=== PATIENT | male | born 1980 | race Caucasian/White ===

== ENCOUNTER 2017-03-22 12:17 | Emergency (ER) | payer OTHER ==
--- NOTE | ~2017-03-22 | CT2 ---
[facility] A Service of [facility] & [facility] RADIOLOGY TEXT RESULTS PATIENT: JANIS DIAZ LOCATION: [facility] : 76 UNIT #: [id number] AGE: [address]: Seth Garner MD SEX: M ORDER DR: [id number] [id number] [facility]. [place], [place] [address] [id number] MR#: [id number] Acc #: [id number] NAME: JANIS DIAZ : 1980 SEX: M STUDY DATE/TIME: 03/22/2017 14:33 UNIT: [facility] ROOM: STUDY DESCRIPTION: CT Abd and Pelv W Cont Attending Physician: Seth Garner M.D. Ordering Physician: Seth Garner M.D. Primary Care Physician: Primary Care Physician No MEDICAL IMAGING REPORT This report is preliminary unless electronic signature is present EXAM Abdomen and pelvis CT with contrast, 03/22/2017 INDICATIONS Groin pain on the right, scheduled for hernia repair in 4 days. Symptom onset in 2013 but pain has been worse for the past year. Worsening symptoms since Wednesday. TECHNIQUE Contrast-enhanced abdomen and pelvis CT was performed. No comparisons. This CT exam was performed with one or more of the following radiation dose reduction techniques: Automatic exposure control, adjustment of mA and/or kV according to patient size, and iterative reconstruction. FINDINGS CT ABDOMEN: Included lung bases are clear. There is old, healed granulomatous disease. Aorta demonstrates no aneurysm or dissection. Spleen, adrenal glands and pancreas are unremarkable. Gallbladder is surgically absent. There is prominence of the extrahepatic common bile duct, likely physiologic given history of cholecystectomy. Maximum diameter is approximately 10 mm. Minimal central intrahepatic ductal prominence, likely also physiologic. Liver otherwise appears unremarkable. Kidneys are normal. CT PELVIS: The bladder is distended but otherwise normal. Prostate within normal limits. No drainable fluid collection in the pelvis. No free fluid. No bowel obstruction or focal inflammatory change of the bowel. Appendix surgically absent by history. There is evidence of inguinal hernia repair on the right. No distinct evidence of hernia recurrence. Reactive-appearing inguinal lymph nodes are present. There is no suspicious bone lesion. IMPRESSION ST[facility] A Service of [facility] & [facility] RADIOLOGY TEXT RESULTS PATIENT: JANIS DIAZ LOCATION: [facility] : 76 UNIT #: [id number] AGE: [address]: Seth Garner MD SEX: M ORDER DR: 1. No clearly acute process identified. No bowel obstruction, drainable fluid collection or focal area of inflammatory change. The appendix is surgically absent. 2. No evidence of recurrent inguinal hernia. There is evidence of prior inguinal hernia repair on the right. 3. Status post cholecystectomy. Dictated by... Markell Bee M.D. THIS IS AN ELECTRONICALLY VERIFIED REPORT Markell Bee M.D. at 03/23/2017 12:57 PM DERREK/mackenzie TD: 03/22/2017 22:40 JOB #: [id number] MEDICAL IMAGING REPORT Page 1 of 1 COPY
[~2017-03-22 12:17] MED LIST: HYDROCODON-ACE1 EAC5 PO; TYLENOL325 M1 PO
[2017-03-22 13:31] LABS: BASOPHIL# 0.1 X10e3 (0-0.3); BASOPHIL% 0.6 % (0-2.5); EOSINOPHIL# 0.1 X10e3 (0-0.7); EOSINOPHIL% 1.4 % (0.0-7.0); HEMATOCRIT 45.4 % (38.0-50.0); HEMOGLOBIN 15.1 gm/dL (13.0-16.0); LYMPHOCYTE# 1.6 X10e3 (1.0-3.5); LYMPHOCYTE% 15.7 % (17.0-45.0); MEAN CELL VOLUME 83.9 FL (83-96); MEAN CORPUSCULAR HEMOGLOBIN 27.9 PG (28-34); MEAN CORPUSCULAR HGB CONC 33.3 g/dL (30-36); MEAN PLATELET VOLUME 8.8 FL (6.5-11.5); MONOCYTE# 0.7 X10e3 (0-1.0); MONOCYTE% 6.9 % (3.0-12.0); NEUTROPHIL# 7.8 X10e3 (1.5-7.1); NEUTROPHIL% 75.4 % (40-75); PLATELET COUNT 251 X10e3 (140-420); RED BLOOD COUNT 5.41 X10e (3.90-5.60); RED CELL DISTRIBUTION WIDTH 15.1 % (11.0-15.5); WHITE BLOOD COUNT 10.3 X10e3 (4.0-10.5)
[2017-03-22 13:34] LABS: DIFF IND NO
[2017-03-22 13:40] LABS: POC - CKMB <1.0 ng/mL (0.0-7.9); POC - TROPONIN <0.05 ng/mL (<=0.05)
[2017-03-22 13:53] LABS: ALBUMIN SERUM 4.2 g/dL (3.5-5.0); BILIRUBIN, DIRECT 0.1 mg/dL (0.0-0.2); BILIRUBIN,INDIRECT 0.4 mg/dL (0.0-0.9); BILIRUBIN,TOTAL 0.5 mg/dL (0.2-2.0); BUN/CREATININE RATIO 13.33; CALCIUM SERUM 9.1 mg/dL (8.4-10.2); CREATININE SERUM 0.6 mg/dL (0.6-1.4); GLOM FILT RATE Estimated 127.6 mL/min (>60); POTASSIUM 3.8 mmol/L (3.5-5.1); PROTEIN TOTAL SERUM 7.3 g/dL (6.0-8.3)
[2017-03-22 14:13] LABS: URINE SOURCE CLEAN CATCH
[2017-03-22 14:18] LABS: URINE APPEARANCE CLEAR; URINE BILIRUBIN NEG (NEG); URINE BLOOD NEG (NEG); URINE COLOR YELLOW; URINE GLUCOSE NEG (NEG); URINE KETONE NEG (NEG); URINE LEUKOCYTE ESTERASE NEG (NEG); URINE NITRATE NEG (NEG); URINE PH 6.5 (5-8); URINE PROTEIN NEG (NEG); URINE SPECIFIC GRAVITY 1.005 (1.003-1.035); URINE UROBILINOGEN 0.2 MG/DL (NEG)
[2017-03-22 14:22] LABS: CULTURE INDICATED? NO
[2017-03-26] MEDS ORDERED: LORTAB 10-3251 EACH PO (08:59)
[2017-03-26] MEDS ORDERED: TYL325 PO (08:59)
== END 2017-03-22 16:41 | disposition home or self-care (01) ==
LOC: CED 12:17
PROVIDERS: Emergency Medicine
DX: R10.31 Right lower quadrant pain (principal); Z90.49 Acquired absence of other specified parts of digestive tract; F17.200 Nicotine dependence, unspecified, uncomplicated; Z98.890 Other specified postprocedural states; Z88.8 Allergy status to other drugs, medicaments and biological substances; Z88.1 Allergy status to other antibiotic agents
CPT/HCPCS: 36415; 74177; 80048; 80076; 81003; 82150; 82553; 83690; 84484; 85025; 96374; 96375; 96376; 99284; J2270; J2405; Q9967

== ENCOUNTER → 2017-03-26 | Day surgery (SDC) | payer OTHER ==
[~2017-03-26] MED LIST changes: +LORTAB 10-3251 EACH PO; +TYL325 PO
--- NOTE | ~2017-03-26 | OR ---
Unit #: [id number] #: [id number] Patient: JANIS DIAZ [id number] [address] [place], [place] [address] [id number] O MR#: [id number] NAME: JANIS DIAZ ROOM: Date of Procedure: 03/26/2017 Admission Date: 03/26/2017 Surgeon: Hiro Arciniega Jr., M.D. : 1980 Attending Physician: Hiro Arciniega Jr., M.D. Primary Care Physician: Primary Care Physician No OPERATIVE REPORT INDICATION FOR PROCEDURE The patient is a 36-year-old white male, who was recently seen in the office, complaining of severe right inguinal pain after having right inguinal hernia and subsequently, a right orchiectomy. He is painful over the scar as well as down towards the scrotum and it was felt he may have retained spermatic cord and painful scar tissue, possibly recurrent hernia. It was also thought that he possibly is having some pain with respect to the scar tissue and his mesh. He is brought in this time for exploration of the right groin with possible removal of mesh, removal of scar tissue, and possible extraperitoneal inguinal hernia repair. The patient understands the procedure including the risks, including that of infection, bleeding, recurrence of his pain, poor healing, and consents. He also understands that he will have some numbness related to lysis of a couple of nerves in the area. ANESTHESIA General with LMA and 0.5% Marcaine with epinephrine locally. PROCEDURES PERFORMED Exploration of right inguinal area with excision of scar tissue and probably a portion of the spermatic cord. DESCRIPTION OF PROCEDURE The patient was positioned in the supine position. After being anesthetized, he was prepped and draped in a routine fashion for exploration of the right inguinal area. An elliptical incision was made around the scar from his previous surgery and carried down through the fatty tissue both superior and inferior with the Bovie cautery and a #10 blade scalpel down to the fascia of the muscle. After the scar was completely removed, additional scar tissue was removed down below the inguinal ligament and around the area of the external ring. There was evidence possibly of some cord tissue present this was then freed up and ligated at its base towards the abdominal wall with 2-0 silk sutures and divided and removed. Also, there appeared to be an intact ilioinguinal nerve which was lysed near the pubic tubercle. The floor of the inguinal canal was completely intact with no evidence of recurrent hernia and with the very strong stable portion of mesh. It was felt this should be left in place and that no further surgery be done at this time. The wound was irrigated. Hemostasis was achieved with Bovie cautery and a couple of 2-0 silk stick ties. After total hemostasis was noted, a 10 mm Paulie-Camacho drain was placed in the deeper aspect of the wound and the subcutaneous tissue was approximated with interrupted 3-0 Vicryl sutures. Skin edges Unit #: [id number] #: [id number] Patient: JANIS DIAZ were approximated with stainless-steel skin clips and skin stapling device. Sterile dressings were applied externally. Estimated blood loss was less than 50 mL. The patient received less than 2000 mL of crystalloid solution during the procedure. Sponges and instruments counts were correct x3. No drains used. No complications. The patient was taken to the recovery room with stable vital signs in satisfactory condition. Dictated by... Hiro Arciniega Jr., M.D. INDIRA/whit TD: 03/27/2017 13:34 JOB #: [id number] OPERATIVE REPORT Page 1 of 1 X Hiro Arciniega MD X PROCEDURE OPERATIVE NOTE
== END | disposition home or self-care (01) ==
LOC: CSUR 08:08
DX: L90.5 Scar conditions and fibrosis of skin (principal); Z88.1 Allergy status to other antibiotic agents; Z88.8 Allergy status to other drugs, medicaments and biological substances; Z87.891 Personal history of nicotine dependence; Z90.49 Acquired absence of other specified parts of digestive tract; Z98.890 Other specified postprocedural states
CPT/HCPCS: 88304; J0330; J0690; J2250; J2405; J2710; J3010; J3370

== ENCOUNTER → 2017-05-21 | Day surgery (SDC) | payer OTHER ==
--- NOTE | ~2017-05-21 | OR ---
Unit #: [id number] #: [id number] Patient: JANIS DIAZ [id number] [facility]. [address] [place], [place] [address] [id number] O MR#: [id number] NAME: JANIS DIAZ ROOM: Date of Procedure: 05/21/2017 Admission Date: 05/21/2017 Surgeon: Hiro Arciniega Jr., M.D. : 1980 Attending Physician: Hiro Arciniega Jr., M.D. Primary Care Physician: Primary Care Physician No OPERATIVE REPORT INDICATIONS FOR PROCEDURE The patient is a 36-year-old white male, who presented to the office complaining of severe left lower back pain related to a nodular mass in the area of the parasacral region. It was felt the patient did have a fairly large lipoma in this area and in view of the fact, he has had severe pain that he should have this removed. He does use pain medication chronically to excess. PREOPERATIVE DIAGNOSIS Large lipomatous mass of the left lumbar area. POSTOPERATIVE DIAGNOSIS Large lipomatous mass of the left lumbar area, noting approximately an 8 cm lipomatous mass. ANESTHESIA General with endotracheal intubation and 0.5% Marcaine with epinephrine locally. PROCEDURE PERFORMED Excision of lipomatous mass, left parasacral area. DESCRIPTION OF PROCEDURE The patient was positioned in supine position. After being anesthetized and intubated, he was placed in prone position, prepped and draped in routine fashion for excision of nodular mass, it was marked in the holding room. A transverse incision was made approximately 4 inches in length. This was carried down through the subcutaneous tissue to the lipomatous mass that was palpable. This mass was dissected free of the surrounding tissue with a #10 blade scalpel as well as the Bovie cautery. After it was completely removed, it was sent to pathology. Hemostasis was achieved with Bovie cautery. One bleeder was controlled with a [id number] 2-0 Vicryl stitch. After total hemostasis was noted, the wound was irrigated and again after hemostasis was noted, the deeper subcutaneous tissue was approximated with interrupted 3-0 Vicryl sutures. Skin edges approximated with stainless-steel skin clips and skin stapling device. Sterile dressings were applied externally. Estimated blood loss less than 25 mL. The patient received less than 1000 mL crystalloid solution during the procedure. Sponges and instruments counts were correct x3. No drains used. No complications. The patient was taken to the recovery room with stable vital signs in satisfactory condition. Unit #: [id number] #: [id number] Patient: JANIS DIAZ Dictated by... Hiro Arciniega Jr. MLidna JACOBSON/whit TD: 05/21/2017 15:50 JOB #: [id number] OPERATIVE REPORT Page 1 of 1 X Hiro Arciniega MD X PROCEDURE OPERATIVE NOTE
== END | disposition home or self-care (01) ==
LOC: CSUR 05:51
DX: D17.1 Benign lipomatous neoplasm of skin and subcutaneous tissue of trunk (principal); Z87.891 Personal history of nicotine dependence; Z88.1 Allergy status to other antibiotic agents; Z88.8 Allergy status to other drugs, medicaments and biological substances; Z90.49 Acquired absence of other specified parts of digestive tract
CPT/HCPCS: 88304; J0330; J2250; J2405; J3010

== ENCOUNTER 2017-05-27 23:31 | Emergency (ER) | payer OTHER ==
[~2017-05-27] VITALS: Ht 180.3 cm; Wt 84.8 kg
== END 2017-05-28 01:04 | disposition home or self-care (01) ==
LOC: CFTX 23:31 → CED 23:31 → CFTX 23:59
DX: G89.29 Other chronic pain (principal); M54.5 Low back pain; I10 Essential (primary) hypertension; Z90.49 Acquired absence of other specified parts of digestive tract; Z98.890 Other specified postprocedural states; F17.210 Nicotine dependence, cigarettes, uncomplicated; Z88.1 Allergy status to other antibiotic agents; Z88.5 Allergy status to narcotic agent
CPT/HCPCS: 99283